=== PATIENT | female | born 1950 | race Caucasian/White ===

== ENCOUNTER 2020-11-27 05:30 | Day surgery (SDC) | payer OTHER ==
[~2020-11-27 05:30] MED LIST: ALLOPURINOL100 MG PO; ATORVASTATIN CA40 MG PO; AVAPRO300 MG PO; HUMULIN 70100 UNIT/2; HYDROCH PO; NABUMETONE500 MG PO; PANADOL PO; PENTOXIFYLLINE400 MG PO; PERCOCET 5/3251 TAB PO; VITAMIN D3 PO
== END 2020-11-27 11:20 | disposition home or self-care (01) ==
LOC: CIR.AMB 05:30
PROVIDERS: ATTEND Orthopaedic Surgery Hand Surgery
DX: G56.01 Carpal tunnel syndrome, right upper limb (principal); Z20.828 Contact with and (suspected) exposure to other viral communicable diseases

== ENCOUNTER 2021-02-12 06:16 | Day surgery (SDC) | payer OTHER ==
[~2021-02-12 06:16] MED LIST changes: +HUMULIN 70100 UNIT/1; +IBERSARTAN PO
== END 2021-02-12 11:20 | disposition home or self-care (01) ==
LOC: CIR.AMB 06:16
PROVIDERS: ATTEND Orthopaedic Surgery Hand Surgery
DX: G56.02 Carpal tunnel syndrome, left upper limb (principal); Z20.822 Contact with and (suspected) exposure to COVID-19